=== PATIENT | male | born 1995 | race Two or more races ===

== ENCOUNTER 2018-10-25 11:18 | Outpatient (CLI) | payer OTHER | END 2018-10-25 15:34 | disposition home or self-care (01) | LOC: RAD 11:18 | DX: F41.8 Other specified anxiety disorders (principal); R45.0 Nervousness; G47.8 Other sleep disorders; Z11.3 Encounter for screening for infections with a predominantly sexual mode of transmission; Z13.220 Encounter for screening for lipoid disorders; Z71.89 Other specified counseling ==

== ENCOUNTER 2023-05-23 12:10 | Outpatient (CLI) | payer OTHER | END 2023-05-23 12:20 | disposition home or self-care (01) | LOC: RAD 12:10 | DX: M54.2 Cervicalgia (principal); M54.6 Pain in thoracic spine; M54.40 Lumbago with sciatica, unspecified side; R10.9 Unspecified abdominal pain ==

== ENCOUNTER 2023-06-05 09:35 | Outpatient (CLI) | payer OTHER | END 2023-06-05 09:41 | disposition home or self-care (01) | LOC: SONOGRAMA 09:35 | DX: E03.9 Hypothyroidism, unspecified (principal) ==

== ENCOUNTER 2024-07-15 09:57 | Outpatient (CLI) | payer OTHER | END 2024-07-15 10:06 | disposition home or self-care (01) | LOC: SONOGRAMA 09:57 | PROVIDERS: ATTEND General Practice | DX: E78.5 Hyperlipidemia, unspecified (principal); Z13.1 Encounter for screening for diabetes mellitus; Z13.220 Encounter for screening for lipoid disorders; Z13.228 Encounter for screening for other metabolic disorders; Z11.3 Encounter for screening for infections with a predominantly sexual mode of transmission; Z11.4 Encounter for screening for human immunodeficiency virus [HIV]; E07.9 Disorder of thyroid, unspecified ==

== ENCOUNTER 2025-03-04 07:03 | Outpatient (CLI) | payer OTHER | END 2025-03-04 07:05 | disposition home or self-care (01) | LOC: SONOGRAMA 07:03 | PROVIDERS: ATTEND General Practice | DX: R42 Dizziness and giddiness (principal); R10.9 Unspecified abdominal pain; E06.9 Thyroiditis, unspecified; E07.9 Disorder of thyroid, unspecified; E07.0 Hypersecretion of calcitonin ==

== ENCOUNTER 2025-03-04 08:28 | Outpatient (CLI) | payer OTHER ==
[2025-03-04 09:27] LABS: BASO % 0.3 % (0.1-1.2); EOS # 0.15 (0.04-0.54); EOS % 2.3 % (0.7-7.0); LYMPH # 1.68 (1.18-3.74); LYMPH % 26.0 % (19.3-53.1); MEAN PLATELET VOLUME 9.60 fl (9.4-12.4); MONO # 0.30 (0.24-0.82); MONO % 4.6 % (4.7-12.5); NEUT # 4.30 (1.56-6.13); NEUT % 66.5 % (34.0-71.1); RED CELL DISTRIBUTION WIDTH 12.2 % (11.6-14.4)
[2025-03-04 09:52] LABS: URINE APPEARANCE Clear; URINE BILIRRUBIN Negative (NEGATIVE); URINE BLOOD Negative; URINE COLOR Yellow; URINE GLUCOSE Negative (NEGATIVE); URINE KETONE Negative (NEGATIVE); URINE LEUKOCYTE Negative; URINE NITRATE Negative; URINE PROTEIN Negative (NEGATIVE); URINE UROBILINOGEN 1.0 E.U./dl
[2025-03-04 09:53] LABS: URINE BACTERIA 8.3 uL (0.0-1933); URINE EPITHELIAL CELLS 1.9 uL (0.0-38.8); URINE RBC 2.1 uL (0.0-20.8); URINE WBC 24.1 uL (0.0-23.2)
[2025-03-04 10:00] LABS: URINE CAST 0.00 uL (0.0-1.40)
[2025-03-04 10:40] LABS: ALT/SGPT 28 U/L (12-78); AST/SGOT 20 U/L (15-37); BILIRUBIN TOTAL 0.41 mg/dL (0.3-1.2); BUN CREA RATIO 12 (7.0-25.0); CHOL HDL RATIO 3.6 (0-5.0); CREATININE SERUM 1.19 mg/dL (0.70-1.30); GFR 72.27; GLOBULINA 3.7 G/DL (2.4-3.5); GLUCOSE FASTING 92 mg/dL (65-100); HDL 55 mg/dl (40-60); LDL 129 mg/dl (0-130); OSMOLALITY SERUM 283 MOSM/KG (275-295); T4 FREE 1.13 NG/ML (0.76-1.46); VLDL 12 (0-39)
[2025-03-04 11:14] LABS: TSH < 0.005 uIU/mL (0.358-3.74)
[2025-03-06 05:06] LABS: HSV I IGG TYPE SPECIFIC Non Reactive (Non Reactive); hav igm Negative (Negative); hep b c Negative (Negative); hep b s ag Negative (Negative)
== END 2025-03-04 08:38 | disposition home or self-care (01) ==
LOC: LAB 08:28
PROVIDERS: ATTEND General Practice
DX: R42 Dizziness and giddiness (principal); R11.0 Nausea; Z11.3 Encounter for screening for infections with a predominantly sexual mode of transmission; F33.1 Major depressive disorder, recurrent, moderate; R11.10 Vomiting, unspecified; N50.9 Disorder of male genital organs, unspecified; E07.9 Disorder of thyroid, unspecified; Z13.220 Encounter for screening for lipoid disorders